=== PATIENT | male | born 1960 ===

== ENCOUNTER → 2017-06-13 | Outpatient (REF) ==
[2017-06-13 12:35] LABS: PSA-TOTAL 0.98 ng/mL (0-4); THYROID STIMULATING HORMONE 5.75 uIU/mL (0.465-4.680)
== END ==
LOC: ZLAB.WCH 11:55
PROVIDERS: Nurse Practitioner Family
DX: Z01.89 Encounter for other specified special examinations (principal)
CPT/HCPCS: G0103